=== PATIENT | female | born 1945 | race Caucasian/White ===

== ENCOUNTER 2017-01-02 15:39 | Emergency (ER) | payer MEDICARE, OTHER ==
--- NOTE | 2017-01-02 16:57 | ER Document Report ---
ED Fall - General Chief Complaint: Fall Stated Complaint: FALL HEAD INJURY/WEAKNESS Time Seen by Provider: 01/02/17 16:56 Mode of Arrival: Ambulatory Information source: Patient TRAVEL OUTSIDE OF THE [place] IN LAST 30 DAYS: No - HPI Patient complains to provider of: Head injury, left hip pain and fall Occurred: Yesterday Where: Home Context: Tripped Associated symptoms: None Location of injury/pain: Head, Hip Quality of pain: Achy Severity: Mild Pain Level: 2 Notes: Patient is a 71-year-old female who presents to the emergency room complaining of head pain and left hip pain that started after she tripped and fell at home yesterday, states she tripped on a carpet that was lying on the floor, the first time causing her to fall on the left hip, she got back up and fell again shortly thereafter hitting the back of her head on the floor, there was no loss of consciousness but she did feel dazed and had an episode of vomiting yesterday evening, states she did not want to come to the emergency room last night because she had to take a bath, denies any symptoms today except for mild tenderness in the left hip and to the back of head - Related data Allergies/Adverse Reactions: latex Allergy (Verified 01/02/17 16:14) nitrofurantoin [From Macrobid] Allergy (Verified 01/02/17 16:14) Sulfa (Sulfonamide Antibiotics) Allergy (Verified 01/02/17 16:14) Past Medical History - General Information source: Patient - Social History Smoking Status: Unknown if Ever Smoked Family History: Reviewed & Not Pertinent Patient has suicidal ideation: No Patient has homicidal ideation: No Renal/ Medical History: Denies: Hx Peritoneal Dialysis Review of Systems - Review of Systems Constitutional: No symptoms reported EENT: No symptoms reported Cardiovascular: No symptoms reported Respiratory: No symptoms reported Gastrointestinal: Nausea, Vomiting Genitourinary: No symptoms reported Female Genitourinary: No symptoms reported Musculoskeletal: See HPI Skin: No symptoms reported Hematologic/Lymphatic: No symptoms reported Neurological/Psychological: No symptoms reported -: Yes All other systems reviewed and negative Physical Exam - Vital signs Vitals: Temp Pulse Resp BP Pulse Ox 98.0 F 87 18 139/84 H 98 01/02/17 16:13 01/02/17 16:13 01/02/17 16:13 01/02/17 16:13 01/02/17 16:13 Interpretation: Normal - General General appearance: Appears well, Alert - HEENT Head: Normocephalic, Atraumatic, Tenderness - Tenderness to posterior scalp, no swelling, no bleeding, no erythema, no wound Eyes: Normal Pupils: PERRL - Respiratory Respiratory status: No respiratory distress Chest status: Nontender Breath sounds: Normal Chest palpation: Normal - Cardiovascular Rhythm: Regular Heart sounds: Normal auscultation Murmur: No - Abdominal Inspection: Normal Distension: No distension Bowel sounds: Normal Tenderness: Nontender Organomegaly: No organomegaly - Back Back: Normal, Nontender - Extremities General upper extremity: Normal inspection, Nontender, Normal color, Normal ROM , Normal temperature General lower extremity: Normal inspection, Tender - Tenderness to palpate over left posterior hip and distal sensation and motor is intact, 2+ DP pulses, full range of motion, Normal color, Normal ROM, Normal temperature. No: Aaron's sign - Neurological Neuro grossly intact: Yes Cognition: Normal Orientation: AAOx4 Dina Coma Scale Eye Opening: Spontaneous [place] Coma Scale Verbal: Oriented [place] Coma Scale Motor: Obeys Commands [place] Coma Scale Total: 15 Speech: Normal Motor strength normal: LUE, RUE, LLE, RLE Sensory: Normal - Psychological Associated symptoms: Normal affect, Normal mood - Skin Skin Temperature: Warm Skin Moisture: Dry Skin Color: Normal Course - Re-evaluation Re-evalutation: 01/02/17 18:01 Imaging findings unremarkable and discussed with patient, she will be discharged with instructions for follow-up and advised to return if any additional concerns, patient acknowledges understanding and agreement with this plan - Vital Signs Vital signs: Temp Pulse Resp BP Pulse Ox 98.1 F 74 16 151/57 H 99 01/02/17 18:05 01/02/17 18:05 01/02/17 18:05 01/02/17 18:05 01/02/17 18:05 - Diagnostic Test Radiology reviewed: Image reviewed, Reports reviewed Discharge - Discharge Clinical Impression: Head injury Qualifiers: Encounter type: initial encounter Qualified Code(s): S09.90XA - Unspecified injury of head, initial encounter Contusion, hip Qualifiers: Encounter type: initial encounter Laterality: left Qualified Code(s): S70.02XA - Contusion of left hip, initial encounter Condition: Stable Disposition: HOME, SELF-CARE Instructions: Head Injury Precautions ([facility]), Contusion ([facility]), Ice Packs ([facility]) Additional Instructions: Follow up with your primary care provider in one to 2 days. Return to the emergency room immediately if symptoms worsen or any additional concerns. Referrals: ANIKA ROBERSON MD [Primary Care Provider] - Follow up as needed
--- NOTE | 2017-01-02 17:24 | RADIOLOGY REPORT (SQ) ---
EXAM DESCRIPTION: CT HEAD WITHOUT COMPLETED DATE/TIME: 01/02/2017 5:14 pm REASON FOR STUDY: injury COMPARISON: None. TECHNIQUE: Axial images acquired through the brain without intravenous contrast. Images reviewed wi th bone, brain and subdural windows. Images stored on PACS. All CT scanners at this facility use dose modulation, iterative reconstruction, and/or weight based d osing when appropriate to reduce radiation dose to as low as reasonably achievable (ALARA). [facility]: Dose Right [facility]: CareDose [facility]: Dose Right [facility]: Teradose 4D [facility]: [employer] RADIATION DOSE: Up-to-date CT equipment and radiation dose reduction techniques were employed. CTDIv ol: 62.3 mGy. DLP: 1163 mGy-cm. mGy. LIMITATIONS: None. FINDINGS: VENTRICLES: Normal size and contour. CEREBRUM: No masses. No hemorrhage. No midline shift. Normal hernandez/white matter differentiation. N o evidence for acute infarction. CEREBELLUM: No masses. No hemorrhage. No alteration of density. No evidence for acute infarction. EXTRAAXIAL SPACES: No fluid collections. No masses. ORBITS AND GLOBE: No intra- or extraconal masses. Normal contour of globe without masses. CALVARIUM: No fracture. PARANASAL SINUSES: No fluid or mucosal thickening. SOFT TISSUES: No mass or hematoma. OTHER: No other significant finding. IMPRESSION: NORMAL BRAIN CT WITHOUT CONTRAST. TECHNICAL DOCUMENTATION: JOB ID: [id number] Quality ID # [id number]: Final reports with documentation of one or more dose reduction techniques (e.g., Au tomated exposure control, adjustment of the mA and/or kV according to patient size, use of iterative reconstruction technique) 2010 [employer]- All Rights Reserved
--- NOTE | 2017-01-02 17:39 | RADIOLOGY REPORT (SQ) ---
EXAM DESCRIPTION: HIP LEFT AP/LATERAL COMPLETED DATE/TIME: 01/02/2017 5:22 pm REASON FOR STUDY: fall COMPARISON: None. NUMBER OF VIEWS: Two views. TECHNIQUE: AP pelvis and additional frog-leg view of the left hip. LIMITATIONS: None. FINDINGS: MINERALIZATION: Normal. LEFT HIP: No fracture or dislocation. No worrisome bone lesions. RIGHT HIP: No fracture or dislocation. No worrisome bone lesions. PUBIS AND ISCHIUM: No fracture. PELVIS: No fracture. SACRUM: No fracture or dislocation. No worrisome bone lesions. LOWER LUMBAR SPINE: No fracture or dislocation. No worrisome bone lesions. No significant disc disea se. SOFT TISSUES: No findings. OTHER: No other significant finding. IMPRESSION: NEGATIVE STUDY OF THE LEFT HIP AND PELVIS. NO RADIOGRAPHIC EVIDENCE OF ACUTE INJURY. TECHNICAL DOCUMENTATION: JOB ID: [id number] [employer]- All Rights Reserved
[2017-01-02 18:11] VITALS: BP 151/57
== END 2017-01-02 18:06 | disposition home or self-care (01) ==
LOC: ER 15:39
DX: S70.02XA Contusion of left hip, initial encounter (principal); S09.90XA Unspecified injury of head, initial encounter; W01.0XXA Fall on same level from slipping, tripping and stumbling without subsequent striking against object, initial encounter; Y93.E9 Activity, other interior property and clothing maintenance; Y92.009 Unspecified place in unspecified non-institutional (private) residence as the place of occurrence of the external cause; M25.552 Pain in left hip; R51 Headache; Z88.2 Allergy status to sulfonamides; Z91.040 Latex allergy status; Z88.1 Allergy status to other antibiotic agents; R11.2 Nausea with vomiting, unspecified
CPT/HCPCS: 70450; 99284

== ENCOUNTER → 2017-03-20 | Outpatient (CLI) | payer MEDICARE ==
[2017-03-20 13:37] LABS: HEMATOCRIT 31.4 % (36.0-47.0); HGB HCT DIFFERENCE -1.4; MEAN CORPUSCULAR HEMOGLOBIN 27.5 pg (27.0-33.4); MEAN CORPUSCULAR HGB CONC 31.9 g/dL (32.0-36.0); MEAN CORPUSCULAR VOLUME 86 fl (80-97); RED BLOOD COUNT 3.64 10^6/uL (3.72-5.28); RED CELL DISTRIBUTION WIDTH 14.1 % (11.5-14.0); WHITE BLOOD COUNT 5.4 10^3/uL (4.0-10.5)
[2017-03-20 14:12] LABS: ERYTHROCYTE SEDIMENTATION RATE 76 mm/hr (0-30)
== END ==
LOC: OD 12:32
PROVIDERS: ATTEND Internal Medicine Rheumatology
DX: D64.9 Anemia, unspecified (principal); R70.0 Elevated erythrocyte sedimentation rate; R79.82 Elevated C-reactive protein (CRP)
CPT/HCPCS: 36415; 85027; 85652; 86140

== ENCOUNTER 2017-04-08 17:52 | Emergency (ER) | payer MEDICARE ==
[2017-04-08 17:57] VITALS: BP 169/67
--- NOTE | 2017-04-08 18:37 | ER Document Report ---
ED Fall - General Chief Complaint: Fall Stated Complaint: FALL/FACE INJURY Time Seen by Provider: 04/08/17 18:24 Mode of Arrival: Ambulatory Information source: Patient Notes: 72-year-old female presents to ED for fall landing on her face. She has a history of high blood pressure bladder cancer arthritis reflux. She also has nodules on her thyroid. States she is on aspirin 81 mg every other day. She denies any blood thinners. She does have some saray-orbital ecchymosis and swelling on the left. She states she was walking to the car stepped in a hole fell face first on the ground. TRAVEL OUTSIDE OF THE [place] IN LAST 30 DAYS: No - HPI Occurred: Just prior to arrival Where: Home, Outdoors Context: Tripped Associated symptoms: None Location of injury/pain: Ankle - Left ankle abrasion, Face, Head, Knee - Knee abrasion to the left, Wrist - Tender Quality of pain: Achy Severity: Moderate Pain Level: 2 - Related data Allergies/Adverse Reactions: latex Allergy (Verified 01/02/17 16:14) nitrofurantoin [From Macrobid] Allergy (Verified 01/02/17 16:14) Sulfa (Sulfonamide Antibiotics) Allergy (Verified 01/02/17 16:14) Past Medical History - General Information source: Patient - Social History Smoking Status: Never Smoker Cigarette use (# per day): No Chew tobacco use (# tins/day): No Smoking Education Provided: No Frequency of alcohol use: None Drug Abuse: None Lives with: Family Family History: Arthritis, CAD, CVA, DM, Hyperlipidemia, Hypertension, Malignancy. denies: COPD, Thyroid Disfunction Patient has suicidal ideation: No Patient has homicidal ideation: No - Past Medical History Cardiac Medical History: Reports: Hx Hypertension Pulmonary Medical History: Reports: None EENT Medical History: Reports: None Neurological Medical History: Reports: None Endocrine Medical History: Reports: Other - Thyroid nodules Renal/ Medical History: Denies: Hx Peritoneal Dialysis Malignancy Medical History: Reports: Other - Bladder cancer GI Medical History: Reports: Hx Gastroesophageal Reflux Disease, Hx Colonoscopy , Hx Endoscopy Musculoskeltal Medical History: Reports Hx Arthritis, Reports Other - Sjogren's Skin Medical History: Reports None Psychiatric Medical History: Reports: None Traumatic Medical History: Reports: None Infectious Medical History: Reports: None Past Surgical History: Reports: Hx Adenoidectomy, Hx Genitourinary Surgery - Bladder removed and now has ileostomy, Hx Hysterectomy, Hx Tonsillectomy Review of Systems - Review of Systems Constitutional: No symptoms reported EENT: No symptoms reported Cardiovascular: No symptoms reported Respiratory: No symptoms reported Gastrointestinal: No symptoms reported Genitourinary: No symptoms reported Female Genitourinary: No symptoms reported Musculoskeletal: No symptoms reported Skin: Other - Abrasions to left wrist the and ankle periorbital ecchymosis with swelling to the left Hematologic/Lymphatic: No symptoms reported Neurological/Psychological: Headaches. denies: Lost consciousness -: Yes All other systems reviewed and negative Physical Exam - Vital signs Vitals: Temp Pulse Resp BP Pulse Ox 98.4 F 84 16 169/67 H 98 04/08/17 17:54 04/08/17 17:54 04/08/17 17:54 04/08/17 17:54 04/08/17 17:54 Interpretation: Normal - General General appearance: Appears well, Alert - HEENT Head: Ecchymosis - Periorbital ecchymosis on the left, swelling to the face Eyes: Normal Pupils: PERRL Ears: Normal External canal: Normal Tympanic membrane: Normal Sinus: Normal Nasal: Normal Mouth/Lips: Normal Mucous membranes: Normal Pharynx: Normal - Respiratory Respiratory status: No respiratory distress Chest status: Nontender Breath sounds: Normal Chest palpation: Normal - Cardiovascular Rhythm: Regular Heart sounds: Normal auscultation Murmur: No - Abdominal Inspection: Normal Distension: No distension Bowel sounds: Normal Tenderness: Nontender Organomegaly: No organomegaly - Back Back: Normal, Nontender - Extremities General upper extremity: Normal color, Normal ROM, Normal temperature General lower extremity: Normal color, Normal ROM, Normal temperature, Normal weight bearing. No: Aaron's sign Wrist: Tender, Abrasion Knee: Tender, Abrasion, Ecchymosis Ankle: Tender, Abrasion - Neurological Neuro grossly intact: Yes Cognition: Normal Orientation: AAOx4 Dina Coma Scale Eye Opening: Spontaneous [place]yman Coma Scale Verbal: Oriented Lyman Coma Scale Motor: Obeys Commands Lyman Coma Scale Total: 15 Speech: Normal Motor strength normal: LUE, RUE, LLE, RLE Sensory: Normal - Psychological Associated symptoms: Normal affect, Normal mood - Skin Skin Temperature: Warm Skin Moisture: Dry Skin Color: Normal Course - Re-evaluation Re-evalutation: 04/08/17 20:[address] with patient and family, written reports given to patient. Patient was instructed to follow-up with her primary doctor. Patient was given Tylenol for her pain. She was also treated with 6 Shur-Clens water bacitracin to her abrasions. CT showed no acute fractures. She does have periorbital ecchymosis to the left eye. - Vital Signs Vital signs: Temp Pulse Resp BP Pulse Ox 98.4 F 84 16 169/67 H 98 04/08/17 17:54 04/08/17 17:54 04/08/17 17:54 04/08/17 17:54 04/08/17 17:54 - Diagnostic Test Radiology reviewed: Image reviewed, Reports reviewed Discharge - Discharge Clinical Impression: Abrasion, left knee, initial encounter, Contusion of left wrist, initial encounter Periorbital ecchymosis of left eye Qualifiers: Encounter type: initial encounter Qualified Code(s): S00.12XA - Contusion of left eyelid and periocular area, initial encounter Fall Qualifiers: Encounter type: initial encounter Qualified Code(s): W19.XXXA - Unspecified fall, initial encounter Head injury Qualifiers: Encounter type: initial encounter Qualified Code(s): S09.90XA - Unspecified injury of head, initial encounter Abrasion of left ankle Qualifiers: Encounter type: initial encounter Qualified Code(s): S90.512A - Abrasion, left ankle, initial encounter Condition: Stable Disposition: HOME, SELF-CARE Instructions: Family Physicians / Practices Additional Instructions: HEAD INJURY PRECAUTIONS: At this point, there is no evidence that your head injury is serious. Observation is necessary, however. Take only clear liquids for the first few hours, unless told otherwise by the doctor. If no pain medication was prescribed, you may take acetaminophen according to the directions on the bottle. Do not take any medication that may alter your level of alertness (unless you've discussed it with the doctor first) . Limit activity for the first 24 hours. Bed rest is best. During the first 24 hours, check to see approximately every two to three hours that the patient is easily arousable, responds normally, and can perform common tasks such as walking without difficulty. Contact your doctor or go to the hospital if any of the following things occur: Persistent vomiting, difficulty in arousing the patient, worsening or continued headache, or failure to improve as expected. Head injuries can cause symptoms that persist for a few days or even a few weeks. CONTUSION: Your injury has resulted in a contusion -- a crushing of the deep tissues. No injury to important structures was detected during the physician's exam. Contusions vary in the amount of pain they cause, and in the length of time required for healing. Typically, the area will become bruised, and will remain painful to touch for two or three weeks. However, most patients are back to working and playing within a few days. After the initial period of rest and cold-packs, your symptoms (together with the doctor's recommendations) will determine how rapidly you can get back to full activity. Usually this means "do what feels okay, but don't do things that hurt." If re-examination was recommended, it's important to follow up as instructed. Call the doctor or return any time if pain increases, if swelling becomes severe, if you develop numbness or weakness in an injured extremity, or if any other alarming symptoms occur. ABRASIONS: An abrasion is a scraping injury of the skin. Some scarring may result. The seriousness of an abrasion is not always obvious at first. Hidden tissue damage may be present and infection may occur despite proper care. Complete healing may take from ten days to as long as a month. The healing time depends on the depth of the abrasion, and on the amount of crushing of underlying tissues from the injury. Keep the wound and dressing clean. Do not shower or bathe the area until okayed by the doctor. If the dressing gets wet, remove it and blot the wound dry, then reapply a clean dressing. Dressings should be changed every day. Sunscreen should be used for six months after the skin is healed. If any signs of infection occur (swelling, redness, increasing tenderness, red streaks, profuse purulent drainage from the abrasion, tender lumps in the armpit or groin above the abrasion, or fever), see the doctor immediately. SOAP CLEANSING: Gently wash the wound daily using a mild soap (like Ivory, Phisoderm, Neutrogena). Use warm water, rubbing gently until all debris, ooze, and crusting have been washed from the wound. Allow to dry briefly (about 10 minutes) after cleaning. Repeat this cleansing at least three times a day for the first two days and then once or twice a day. ANTIBIOTIC OINTMENT PROTECTION: Your wounds are such that dressing them is not practical or optional. After cleansing, you should apply a thin coating of antibiotic ointment ( Bacitracin, not Neosporin) to the wounds at least three times daily. This lessens infection risk, and may decrease the amount of scarring. Use a q-tip or dull butter knife, not your finger, to apply this ointment. Any debris or ooze which builds up in the ointment should be gently rubbed off with a sterile gauze pad. Harder crusting may need to be gently scrubbed off with a clean wash cloth with soap and warm water, perhaps applying a warm, wet wash cloth to the wound for ten minutes first. Development of redness, severe itching, or blistering may mean allergy to the ointment. See the doctor. USE OF TYLENOL (ACETAMINOPHEN): Acetaminophen may be taken for pain relief or fever control. It's much safer than aspirin, offering a wider range of "safe" dosages. It is safe during . Some brand names are Tylenol, Panadol, Datril, Anacin 3, Tempra, and Liquiprin. Acetaminophen can be repeated every four hours. The following are maximum recommended dosages: WEIGHT Dose Drops Elixir Chewable( 80mg) (LBS.) drprs=droppers tsp=teaspoon 6 40 mg 0.4 ml (1/2) 6-11 80 mg 0.8 ml (full) tsp 1 tab 12-16 120 mg 1 1/2 drprs 3/4 tsp 1 1/2 tabs 17-23 160 mg 2 drprs 1 tsp 2 tabs 24-30 240 mg 3 drprs 1 1/2 tsp 3 tabs 30-35 320 mg 2 tsp 4 tabs 36-41 360 mg 2 1/4 tsp 4 1/2 tabs 42-47 400 mg 2 1/2 tsp 5 tabs 48-53 480 mg 3 tsp 6 tabs 54-59 520 mg 3 1/4 tsp 6 1/2 tabs 60-64 560 mg 3 1/2 tsp 7 tabs 65-70 600 mg 3 3/4 tsp 7 1/2 tabs 71-76 640 mg 4 tsp 8 tabs 77-82 720 mg 4 1/2 tsp 9 tabs 83-88 800 mg 5 tsp 10 tabs >89 pounds or adults 650 mg to 900 mg Acetaminophen can be repeated every four hours. Maximum dose not to exceed 4000 mg a day. These maximum recommended dosages are slightly higher than the dosages written on the product container, but these dosages are very safe and below the toxic dosage for acetaminophen. ICE PACKS: Apply ice packs frequently against the painful area. Many different schedules are recommended, such as "20 minutes on, 20 minutes off" or "one hour ice, two hours rest." If you need to work, you may need to go longer between ice treatments. You should plan to have the area ice packed AT LEAST one fourth of the time. The ice should be applied over the wrap, tape, or splint, or over a layer of cloth -- not directly against the skin. Some ice bags have a built-in cloth and can be put directly on the skin. WARM PACKS: After approximately two days, apply gentle heat (such as a heating pad or hot water bottle) for about 20 to 30 minutes about every two hours -- at least four times daily. Warmth and elevation will help you make a more rapid recovery , and will ease the pain considerably. Do not use HOT heat, and never apply heat for longer than 30 minutes. The continuous heat can invisibly damage skin and muscles -- even when no burn is seen on the surface. Damaged muscles can make you MORE sore. FOLLOW-UP CARE: If you have been referred to a physician for follow-up care, call the physician s office for an appointment as you were instructed or within the next two days. If you experience worsening or a significant change in your symptoms, notify the physician immediately or return to the Emergency Department at any time for re-evaluation. Forms: Elevated Blood Pressure
[2017-04-08] MEDS ORDERED: ACETAMINOPHEN 325 MG TABLET PO ONE (19:33)
--- NOTE | 2017-04-08 19:43 | RADIOLOGY REPORT (SQ) ---
EXAM DESCRIPTION: CT CERVICAL SPINE WITHOUT COMPLETED DATE/TIME: 04/08/2017 7:19 pm REASON FOR STUDY: fall landed on face COMPARISON: None. TECHNIQUE: Axial images acquired through the cervical spine without intravenous contrast. Images re viewed with lung, soft tissue and bone windows. Reconstructed coronal and sagittal MPR images review ed. Images stored on PACS. All CT scanners at this facility use dose modulation, iterative reconstruction, and/or weight based d osing when appropriate to reduce radiation dose to as low as reasonably achievable (ALARA). [facility]: Dose Right [facility]: CareDose [facility]: Dose Right [facility]: Teradose 4D [facility]: [employer] RADIATION DOSE: Up-to-date CT equipment and radiation dose reduction techniques were employed. CTDIv ol: 16.0 mGy. DLP: 354 mGy-cm. mGy. LIMITATIONS: None. FINDINGS: ALIGNMENT: Anatomic. MINERALIZATION: Normal. VERTEBRAL BODIES: No fractures or dislocation. DISCS: Multilevel disc space narrowing with osteophytes. FACETS, LATERAL MASSES, POSTERIOR ELEMENTS: Facet arthropathy. No fractures. No dislocation. No ac dusty findings. HARDWARE: None in the spine. VISUALIZED RIBS: No fractures. LUNG APICES AND SOFT TISSUES: Incidental note is made of an enlarged, heterogeneous left lobe of the thyroid. OTHER: No other significant finding. IMPRESSION: No evidence of acute osseous injury. Background of chronic cervical spondylotic change. Incidental note is made of an enlarged, heterogeneous left thyroid lobe. TECHNICAL DOCUMENTATION: JOB ID: [id number] Quality ID # [id number]: Final reports with documentation of one or more dose reduction techniques (e.g., Au tomated exposure control, adjustment of the mA and/or kV according to patient size, use of iterative reconstruction technique) 2010 [employer]- All Rights Reserved
--- NOTE | 2017-04-08 19:45 | RADIOLOGY REPORT (SQ) ---
EXAM DESCRIPTION: CT FACIAL AREA WITHOUT COMPLETED DATE/TIME: 04/08/2017 7:19 pm REASON FOR STUDY: fall landed on face COMPARISON: None. TECHNIQUE: Noncontrasted images through the facial bones and orbits windowed for bone and soft tissu e. Additional coronal and sagittal reconstructed images reviewed. All images stored on PACS. All CT scanners at this facility use dose modulation, iterative reconstruction, and/or weight based d osing when appropriate to reduce radiation dose to as low as reasonably achievable (ALARA). [facility]: Dose Right [facility]: CareDose [facility]: Dose Right [facility]: Teradose 4D [facility]: [employer] RADIATION DOSE: Up-to-date CT equipment and radiation dose reduction techniques were employed. CTDIv ol: 30.4 mGy. DLP: 555 mGy-cm. mGy. LIMITATIONS: None. FINDINGS: FACIAL BONES: No fracture or bone lesion. ORBITS: Intact. No fracture. Symmetric intact globes and retroorbital soft tissues. PARANASAL SINUSES: Clear. No significant mucosal thickening, mass or fluid. No nasal polyps. Maxill grupo sinus outlets are patent. SOFT TISSUES: Note is made of mild left pre maxillary soft tissue edema. INFERIOR BRAIN: Limited view. No acute findings. OTHER: No other significant finding. IMPRESSION: Left pre maxillary soft tissue edema without underlying osseous injury. TECHNICAL DOCUMENTATION: JOB ID: [id number] Quality ID # [id number]: Final reports with documentation of one or more dose reduction techniques (e.g., Au tomated exposure control, adjustment of the mA and/or kV according to patient size, use of iterative reconstruction technique) 2010 [employer]- All Rights Reserved
--- NOTE | 2017-04-08 19:46 | RADIOLOGY REPORT (SQ) ---
EXAM DESCRIPTION: CT HEAD WITHOUT COMPLETED DATE/TIME: 04/08/2017 7:19 pm REASON FOR STUDY: fall landed on face COMPARISON: None. TECHNIQUE: Axial images acquired through the brain without intravenous contrast. Images reviewed wi th bone, brain and subdural windows. Images stored on PACS. All CT scanners at this facility use dose modulation, iterative reconstruction, and/or weight based d osing when appropriate to reduce radiation dose to as low as reasonably achievable (ALARA). [facility]: Dose Right [facility]: CareDose [facility]: Dose Right [facility]: Teradose 4D [facility]: Smart [employer] RADIATION DOSE: Up-to-date CT equipment and radiation dose reduction techniques were employed. CTDIv ol: 64.6 mGy. DLP: 1163 mGy-cm. mGy. LIMITATIONS: None. FINDINGS: VENTRICLES: Normal size and contour. CEREBRUM: No masses. No hemorrhage. No midline shift. No evidence for acute infarction. Normal gra y/white matter differentiation. No areas of low density in the white matter. CEREBELLUM: No masses. No hemorrhage. No alteration of density. No evidence for acute infarction. EXTRAAXIAL SPACES: No fluid collections. No masses. ORBITS AND GLOBE: No intra- or extraconal masses. Normal contour of globe without masses. CALVARIUM: No fracture. PARANASAL SINUSES: No fluid or mucosal thickening. SOFT TISSUES: No mass or hematoma. OTHER: No other significant finding. IMPRESSION: NORMAL BRAIN CT WITHOUT CONTRAST. EVIDENCE OF ACUTE STROKE: NO. COMMENT: Quality ID # [id number]: Final reports with documentation of one or more dose reduction techniques (e.g., Automated exposure control, adjustment of the mA and/or kV according to patient size, use of iterative reconstruction technique) TECHNICAL DOCUMENTATION: JOB ID: [id number]- All Rights Reserved
== END 2017-04-08 20:39 | disposition home or self-care (01) ==
LOC: ER 17:52
DX: S60.212A Contusion of left wrist, initial encounter (principal); S80.212A Abrasion, left knee, initial encounter; S90.512A Abrasion, left ankle, initial encounter; S00.12XA Contusion of left eyelid and periocular area, initial encounter; R03.0 Elevated blood-pressure reading, without diagnosis of hypertension; E04.1 Nontoxic single thyroid nodule; W19.XXXA Unspecified fall, initial encounter
CPT/HCPCS: 99283; 70450; 70486; 72125; A9270

== ENCOUNTER → 2018-10-17 | Outpatient (CLI) | payer MEDICARE | LOC: OD 13:53 | PROVIDERS: ATTEND Physician Assistant | DX: N39.0 Urinary tract infection, site not specified (principal); R31.9 Hematuria, unspecified | CPT/HCPCS: 87086; 87088; 87186 ==

== ENCOUNTER → 2019-01-02 | Outpatient (CLI) | payer MEDICARE ==
--- NOTE | 2019-01-02 14:05 | RADIOLOGY REPORT (SQ) ---
EXAM DESCRIPTION: CT ABD/PELVIS WITH IV ORAL COMPLETED DATE/TIME: 01/02/2019 1:16 pm REASON FOR STUDY: DIVERTICULITIS (K57.92) K57.92 DVTRCLI OF INTEST, PART UNSP, W/O PERF OR ABSCESS W/O COMPARISON: None. TECHNIQUE: CT scan of the abdomen and pelvis performed using helical scanning technique with dynamic intravenous contrast injection. Oral contrast. Images reviewed with lung, soft tissue, and bone win dows. Reconstructed coronal and sagittal MPR images reviewed. Delayed images for evaluation of the ur inary system also acquired. All images stored on PACS. All CT scanners at this facility use dose modulation, iterative reconstruction, and/or weight based d osing when appropriate to reduce radiation dose to as low as reasonably achievable (ALARA). [facility]: Dose Right [facility]: CareDose [facility]: Dose Right [facility]: Teradose 4D [facility]: [employer] CONTRAST TYPE AND DOSE: contrast/concentration: Isovue 350.00 mg/ml; Total Contrast Delivered: 85.0 ml; Total Saline Delivered: 69.0 ml RENAL FUNCTION: Creatinine 1.2 RADIATION DOSE: CT Rad equipment meets quality standard of care and radiation dose reduction techniq ues were employed. CTDIvol: 9.0 - 10.2 mGy. DLP: 941 mGy-cm.. LIMITATIONS: None. FINDINGS: LOWER CHEST: No significant findings. No nodules or infiltrates. LIVER: Normal size. No masses. SPLEEN: Normal size. No focal lesions. PANCREAS: No masses. No significant calcifications. No adjacent inflammation or peripancreatic fluid collections. Pancreatic duct not dilated. GALLBLADDER: No identified stones by CT criteria. No inflammatory changes to suggest cholecystitis. ADRENAL GLANDS: No significant masses or asymmetry. RIGHT KIDNEY AND URETER: No solid masses. No significant calcifications. No hydronephrosis or hyd roureter. LEFT KIDNEY AND URETER: No solid masses. No significant calcifications. Hydronephrosis. AORTA AND VESSELS: No aneurysm. No dissection. Renal arteries, SMA, celiac without stenosis. RETROPERITONEUM: No retroperitoneal adenopathy, hemorrhage or masses. BOWEL AND PERITONEAL CAVITY: Sigmoid diverticulosis. No significant stranding. No obvious bowel mas s. APPENDIX: Not identified. 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 The patient has had a urinary diversion procedure. T here is an ostomy in the right lower quadrant. No pelvic mass. ABDOMINAL WALL: Right lower quadrant ostomy containing unobstructed bowel. BONES: No significant or acute findings. OTHER: No other significant finding. IMPRESSION: Diverticulosis coli. Prior urinary diversion procedure. Left hydronephrosis related to the procedure. No acute finding in the abdomen or pelvis. TECHNICAL DOCUMENTATION: JOB ID: [id number] Quality ID # [id number]: Final reports with documentation of one or more dose reduction techniques (e.g., Au tomated exposure control, adjustment of the mA and/or kV according to patient size, use of iterative reconstruction technique) 2010 [employer]- All Rights Reserved Reading location - IP/workstation name: [email or web address]
== END ==
LOC: RAD 12:31
PROVIDERS: ATTEND Surgery
DX: K57.92 Diverticulitis of intestine, part unspecified, without perforation or abscess without bleeding (principal)
CPT/HCPCS: 74177; 82565

== ENCOUNTER 2019-03-01 10:24 | Emergency (ER) | payer MEDICARE ==
[2019-03-01] MEDS ORDERED: NORMAL SALINE 1000 ML 1,000 ML IV ONE (10:46)
--- NOTE | 2019-03-01 10:48 | ER Document Report ---
ED Medical Screen (RME) - General Chief Complaint: Lower Abdominal Pain Stated Complaint: BLOOD IN STOMA/ABDOMINAL Time Seen by Provider: 03/01/19 10:44 Primary Care Provider: TEODORO ORTIZ MD [Primary Care Provider] - Follow up as needed Mode of Arrival: Ambulatory Information source: Patient Notes: 74-year-old female presented to ED for complaint of blood in her urostomy stoma this morning when she woke up. She states it is full of thick blood. She states for the last 3 weeks she has been very sick nausea vomiting and diarrhea. She states she went to her primary care yesterday and they told her to come back in 2 weeks if she was not better. She states she woke up this morning and the urostomy was full of bloody urine. She has had bladder cancer and that is why her bladder was removed. She is on high blood pressure medicine. She states she has a lot of pain around the stoma and has not felt right since she had a hernia surgery repaired in [place] around January 21. I have greeted and performed a rapid initial assessment of this patient. A comprehensive ED assessment and evaluation of the patient, analysis of test results and completion of medical decision making process will be conducted by an additional ED providers. TRAVEL OUTSIDE OF THE [place] IN LAST 30 DAYS: No - Related Data Allergies/Adverse Reactions: latex Allergy (Verified 03/01/19 10:26) nitrofurantoin [From Macrobid] Allergy (Verified 03/01/19 10:26) Sulfa (Sulfonamide Antibiotics) Allergy (Verified 03/01/19 10:26) Past Medical History - Past Medical History Cardiac Medical History: Reports: Hx Hypertension Renal/ Medical History: Denies: Hx Peritoneal Dialysis GI Medical History: Reports: Hx Gastroesophageal Reflux Disease, Hx Colonoscopy, Hx Endoscopy Musculoskeltal Medical History: Reports Hx Arthritis Past Surgical History: Reports: Hx Adenoidectomy, Hx Genitourinary Surgery - Bladder removed and now has ileostomy, Hx Hysterectomy, Hx Tonsillectomy Physical Exam - Vital signs Vitals: Temp Pulse Resp BP Pulse Ox 99.1 F 92 16 147/63 H 96 03/01/19 10:28 03/01/19 10:28 03/01/19 10:28 03/01/19 10:28 03/01/19 10:28 Course - Vital Signs Vital signs: Temp Pulse Resp BP Pulse Ox 99.1 F 92 16 147/63 H 96 03/01/19 10:28 03/01/19 10:28 03/01/19 10:28 03/01/19 10:28 03/01/19 10:28 Doctor's Discharge - Discharge Referrals: TEODORO ORTIZ MD [Primary Care Provider] - Follow up as needed
[2019-03-01 11:08] LABS: ABSOLUTE EOSINOPHILS # (AUTO) 0.1 10^3/uL (0.0-0.6); ABSOLUTE LYMPHOCYTES (AUTO) 0.8 10^3/uL (0.5-4.7); ABSOLUTE MONOCYTES (AUTO) 0.9 10^3/uL (0.1-1.4); ABSOLUTE NEUT (AUTO) 10.8 10^3/uL (1.7-8.2); BASOPHILS % (AUTO) 0.3 % (0-2); EOSINOPHILS % (AUTO) 0.5 % (0-6); HEMATOCRIT 27.9 % (36.0-47.0); HEMOGLOBIN 9.2 g/dL (12.0-15.5); LYMPHOCYTES % (AUTO) 6.7 % (13-45); MEAN CORPUSCULAR HEMOGLOBIN 28.2 pg (27.0-33.4); MEAN CORPUSCULAR VOLUME 86 fl (80-97); MONOCYTES % (AUTO) 6.8 % (3-13); PLATELET COUNT 315 10^3/uL (150-450); RED BLOOD COUNT 3.26 10^6/uL (3.72-5.28); RED CELL DISTRIBUTION WIDTH 13.3 % (11.5-14.0); SEGMENTED NEUTROPHILS % (AUTO) 85.7 % (42-78); TOTAL CELLS COUNTED % (AUTO) 100 %; WHITE BLOOD COUNT 12.6 10^3/uL (4.0-10.5)
[2019-03-01 11:24] LABS: ALBUMIN 3.3 g/dL (3.5-5.0); ALKALINE PHOSPHATASE 93 U/L (38-126); ANION GAP 10 (5-19); ASPARTATE AMINO TRANSFERASE 26 U/L (14-36); BILIRUBIN,DIRECT 0.3 mg/dL (0.0-0.4); BILIRUBIN,TOTAL 0.5 mg/dL (0.2-1.3); BLOOD UREA NITROGEN 18 mg/dL (7-20); CALCIUM 8.3 mg/dL (8.4-10.2); CARBON DIOXIDE 29 mmol/L (22-30); CHLORIDE 101 mmol/L (98-107); GLUCOSE 117 mg/dL (75-110); POTASSIUM 4.1 mmol/L (3.6-5.0); TOTAL PROTEIN 6.3 g/dL (6.3-8.2)
--- NOTE | 2019-03-01 12:23 | RADIOLOGY REPORT (SQ) ---
EXAM DESCRIPTION: U/S RETROPERITON (RENAL/AORTA) COMPLETED DATE/TIME: 03/01/2019 12:13 pm REASON FOR STUDY: hematuria in urostomy stoma COMPARISON: CT abdomen pelvis dated 01/02/2019 TECHNIQUE: Dynamic and static grayscale images acquired of the kidneys and bladder and recorded on P ACS. Additional selected color Doppler and spectral images recorded. LIMITATIONS: None. FINDINGS: RIGHT KIDNEY: The right kidney measures 10.1 cm in length. Normal echogenicity. No so lid or suspicious masses. No hydronephrosis. No calcifications. LEFT KIDNEY: Normal size. Normal echogenicity. No solid or suspicious masses. There is stable left-sided hydronephrosis when compared to prior CT. No calcifications. BLADDER: Prior cystectomy. OTHER FINDINGS: No other significant finding. IMPRESSION: Left-sided hydronephrosis not significantly changed when compared to prior CT. TECHNICAL DOCUMENTATION: JOB ID: [id number] [employer]- All Rights Reserved Reading location - IP/workstation name: [email or web address]
--- NOTE | 2019-03-01 12:28 | ER Document Report ---
ED General - General Chief Complaint: Lower Abdominal Pain Stated Complaint: BLOOD IN STOMA/ABDOMINAL Time Seen by Provider: 03/01/19 10:44 Primary Care Provider: TEODORO ORTIZ MD [NO LOCAL MD] - Follow up as needed Mode of Arrival: Ambulatory Information source: Patient Notes: HPI: 74-year-old female who presents today with what she states is around 2 weeks of intermittent right lower quadrant abdominal pain with intermittent nonbloody vomiting. Patient does states she has diarrhea around once every 2 days but she states this is a chronic issue. No increased diarrhea. Patient does have a history in 2017 and bladder removal with ostomy placement secondary to bladder cancer. She also had a hernia repaired in [place] on January 21 to the lower abdominal region. When asked why she waited so long to come get evaluated she states that she is stubborn. Patient states she has had some low intermittent fevers but denies any documentation of this. She denies any headache, sore throat, cough, chest pain, or shortness of breath. Does state the ostomy output has been intermittently bloody in color. She denies any flank pain. ROS: See HPI All other review of systems reviewed and otherwise negative Reviewed vital signs and nursing note as charted by RN. PHYSICAL EXAM: CONSTITUTIONAL: Alert and oriented and responds appropriately to questions. Well-appearing; well-nourished HEAD: Normocephalic; atraumatic EYES: Sclerae is not pale ENT: Normal nose; no rhinorrhea; moist mucous membranes; pharynx without lesions noted NECK: Supple without meningismus; non-tender; no cervical lymphadenopathy, no masses CARD: Regular rate and rhythm; no murmurs; symmetric distal pulses RESP: Normal chest excursion without splinting or tachypnea; breath sounds clear and equal bilaterally; no wheezes, no rhonchi, no rales ABD/GI: Normal bowel sounds; non-distended; soft, mildly tender to palpation of the periumbilical region without rebound or guarding; ostomy placed with some whitish discharge in the ostomy bag; no palpable organomegaly or masses BACK: The back appears normal and is non-tender to palpation EXT: Normal ROM in all joints; non-tender to palpation; no edema SKIN: No acute lesions noted NEURO: CN 2-12 intact; 5/5 bilateral upper and lower extremity strength with sensation intact to light touch PSYCH: The patient's mood and manner are appropriate. Grooming and personal hygiene are appropriate. TRAVEL OUTSIDE OF THE [place] IN LAST 30 DAYS: No - Related Data Allergies/Adverse Reactions: latex Allergy (Verified 03/01/19 10:26) nitrofurantoin [From Macrobid] Allergy (Verified 03/01/19 10:26) Sulfa (Sulfonamide Antibiotics) Allergy (Verified 03/01/19 10:26) Past Medical History - General Information source: Patient - Social History Smoking Status: Never Smoker Chew tobacco use (# tins/day): No Frequency of alcohol use: None Drug Abuse: None Family History: Arthritis, CAD, CVA, DM, Hyperlipidemia, Hypertension, Malignancy. denies: COPD, Thyroid Disfunction Patient has suicidal ideation: No Patient has homicidal ideation: No - Past Medical History Cardiac Medical History: Reports: Hx Hypertension Renal/ Medical History: Denies: Hx Peritoneal Dialysis GI Medical History: Reports: Hx Gastroesophageal Reflux Disease, Hx Colonoscopy, Hx Endoscopy Musculoskeletal Medical History: Reports Hx Arthritis Past Surgical History: Reports: Hx Adenoidectomy, Hx Genitourinary Surgery - Bladder removed and now has ileostomy, Hx Hysterectomy, Hx Tonsillectomy Physical Exam - Vital signs Vitals: Temp Pulse Resp BP Pulse Ox 99.1 F 92 16 147/63 H 96 03/01/19 10:28 03/01/19 10:28 03/01/19 10:28 03/01/19 10:28 03/01/19 10:28 Course - Re-evaluation Re-evalutation: 03/01/19 12:28 Given the above history and physical we will order hemoglobin level, basic chemistry, CT scan of the abdomen and pelvis, and reassess. I would like to evaluate for the possibility of an ostomy leak, intra-abdominal process, abdominal obstruction, or other acute abdominal or ureteral abnormality. 03/01/19 13:32 Labs and imaging as recorded. I have called and spoken directly to the urologist on-call who states that she would like us to call Dr. Maxwell's group. I have provided Zosyn. The surgeon, Dr. Molly Juarez will be returning the call. 03/01/19 16:12 I was able to speak directly to the surgeon Dr. Ortiz who agrees with transfer and with providing every 6 hours Zosyn. - Vital Signs Vital signs: Temp Pulse Resp BP Pulse Ox 99.1 F 92 16 147/63 H 96 03/01/19 10:28 03/01/19 10:28 03/01/19 10:28 03/01/19 10:28 03/01/19 10:28 - Laboratory Result Diagrams: 03/01/19 10:57 03/01/19 10:57 Laboratory results interpreted by me: 03/01/19 03/01/19 03/01/19 10:57 10:57 13:20 WBC 12.6 H RBC 3.26 L Hgb 9.2 L Hct 27.9 L Lymph % (Auto) 6.7 L Absolute Neuts (auto) 10.8 H Seg Neutrophils % 85.7 H Est GFR (MDRD) Non-Af 54 L Glucose 117 H Calcium 8.3 L Albumin 3.3 L Urine Protein 100 H Urine Ketones TRACE H Urine Blood LARGE H Ur Leukocyte Esterase SMALL H Discharge - Discharge Clinical Impression: Abdominal mass, LLQ (left lower quadrant), Pancreatic mass Condition: Fair Disposition: [place] Referrals: TEODORO ORTIZ MD [NO LOCAL MD] - Follow up as needed
--- NOTE | 2019-03-01 13:53 | RADIOLOGY REPORT (SQ) ---
EXAM DESCRIPTION: CT ABD/PELVIS WITH IV ONLY COMPLETED DATE/TIME: 03/01/2019 1:33 pm REASON FOR STUDY: 13; RLQ pain; h/o hernia repair/bladder removal COMPARISON: 01/02/2019 TECHNIQUE: CT scan of the abdomen and pelvis performed using helical scanning technique with dynamic intravenous contrast injection. No oral contrast. Images reviewed with lung, soft tissue, and bone windows. Reconstructed coronal and sagittal MPR images reviewed. Delayed images for evaluation of the urinary system also acquired. All images stored on PACS. All CT scanners at this facility use dose modulation, iterative reconstruction, and/or weight based d osing when appropriate to reduce radiation dose to as low as reasonably achievable (ALARA). [facility]: Dose Right [facility]: CareDose [facility]: Dose Right [facility]: Teradose 4D [facility]: [employer] CONTRAST TYPE AND DOSE: contrast/concentration: Isovue 350.00 mg/ml; Total Contrast Delivered: 79.0 ml; Total Saline Delivered: 57.5 ml RENAL FUNCTION: Creatinine = 1.0 RADIATION DOSE: CT Rad equipment meets quality standard of care and radiation dose reduction techniq ues were employed. CTDIvol: 7.3 - 8.4 mGy. DLP: 800 mGy-cm.. LIMITATIONS: None. FINDINGS: LOWER CHEST: No significant findings. No nodules or infiltrates. LIVER: Normal size. No masses. No dilated ducts. SPLEEN: Normal size. No focal lesions. PANCREAS: There is new soft tissue mass of the pancreatic body measuring 5.3 x 2.1 x 2.8 cm (series 2 , image 30, series 602, image 47). No significant calcifications. No adjacent inflammation or peripa ncreatic fluid collections. Pancreatic duct not dilated. GALLBLADDER: No identified stones by CT criteria. No inflammatory changes to suggest cholecystitis. ADRENAL GLANDS: No significant masses or asymmetry. RIGHT KIDNEY AND URETER: No solid masses. No significant calcifications. No hydronephrosis or hyd roureter status post ileal conduit urinary diversion. LEFT KIDNEY AND URETER: No solid masses. No significant calcifications. Redemonstrated left-sided hydronephrosis status post ileal conduit urinary diversion. There is no significant contrast excret ion on delayed phase imaging, concerning for high-grade obstruction. AORTA AND VESSELS: No aneurysm. No dissection. Renal arteries, SMA, celiac without stenosis. RETROPERITONEUM: No retroperitoneal adenopathy, hemorrhage or masses. BOWEL AND PERITONEAL CAVITY: Postoperative findings of ileal conduit urinary diversion. No masses or inflammatory changes. No free fluid or peritoneal masses. APPENDIX: Normal. PELVIS: No mass. No free fluid. Status posthysterectomy. Normal bladder. ABDOMINAL WALL: There is an abdominal wall fluid collection about the inferior aspect of a urinary di version stoma measuring approximately 9.2 x 3.0 x 5.8 cm (series 2, image 69, series 602, image 34). BONES: No significant or acute findings. OTHER: No other significant finding. IMPRESSION: 1. There is an abdominal wall fluid collection about the inferior aspect of a urinary di version stoma measuring approximately 9.2 x 3.0 x 5.8 cm (series 2, image 69, series 602, image 34). Given recent parastomal hernia repair, this may reflect hematoma, seroma, or abscess. This is likel y amenable to percutaneous ultrasound-guided aspiration if desired. 2. Redemonstrated left-sided hydronephrosis status post ileal conduit urinary diversion. There is no significant contrast excretion on delayed phase imaging, concerning for high-grade obstruction. 3. There is new soft tissue mass of the pancreatic body measuring 5.3 x 2.1 x 2.8 cm (series 2, image 30, series 602, image 47). This finding is concerning for malignancy. Recommend multiphasic contra st-enhanced MRI to further evaluate. TECHNICAL DOCUMENTATION: JOB ID: [id number] Quality ID # [id number]: Final reports with documentation of one or more dose reduction techniques (e.g., Au tomated exposure control, adjustment of the mA and/or kV according to patient size, use of iterative reconstruction technique) 2010 [email or web address]- All Rights Reserved Reading location - IP/workstation name: [email or web address]
[2019-03-01 14:13] LABS: APPEARANCE,URINE TURBID; BILIRUBIN,URINE NEGATIVE (NEGATIVE); COLOR,URINE RED; GLUCOSE, URINE NEGATIVE (NEGATIVE); KETONES,URINE TRACE mg/dL (NEGATIVE); LEUKOCYTE ESTERASE,URINE SMALL (NEGATIVE); NITRITE,URINE NEGATIVE (NEGATIVE); PROTEIN,URINE 100 mg/dL (NEGATIVE); URINE SPECIFIC GRAVITY 1.023; UROBILINOGEN,URINE NEGATIVE mg/dL (<2.0)
[2019-03-01] MEDS ORDERED: PIPERACILLIN/TAZOBACTAM 3.375 GM VIAL IV ONE (15:53)
[2019-03-01] MEDS ORDERED: PIPERACILLIN/TAZOBACTAM 3.375 GM VIAL IV SCH ×2 (16:15→22:15)
[2019-03-01] MEDS ORDERED: ONDANSETRON HCL INJ/PF 4 MG/2 ML SDV IV ONE (20:36)
--- NOTE | 2019-03-01 21:09 | ER Document Report ---
Doctor's Note Notes: 03/01/19 21:09 Patient was evaluated upon transfer team arrival. She is resting comfortably. She denies any pain. Vital signs are stable and she is stable for transfer.
[2019-03-01 21:33] VITALS: BP 134/53
== END 2019-03-01 21:32 | disposition short-term general hospital (02) ==
LOC: ER 10:24
DX: K86.9 Disease of pancreas, unspecified (principal); R19.00 Intra-abdominal and pelvic swelling, mass and lump, unspecified site; R10.32 Left lower quadrant pain; R10.31 Right lower quadrant pain; R11.10 Vomiting, unspecified; R19.7 Diarrhea, unspecified; R50.9 Fever, unspecified; R10.815 Periumbilic abdominal tenderness; Z85.51 Personal history of malignant neoplasm of bladder; I10 Essential (primary) hypertension
CPT/HCPCS: 99285; 96361; 96375; 96365; 86900; 86901; 36415; 87086; 86850; 83690; 85025; 87088; 80053; 81001; 87186; 76770; 74177; J2405; J7030; J2543

== ENCOUNTER 2019-05-29 08:15 | Day surgery (SDC) | payer MEDICARE ==
[~2019-05-29 08:15] MED LIST: CHONDR SU A NA/HYALUR INTRAOC KIT (SURGICARE) ONE; DORZOLAMIDE HCL 2%/TIMOLOL MALEAT 0.5% OPH SOLN 10 ML OD PRN; EPINEPHRINE INJ/PF 1 MG/1 ML AMPULE ONE; KETOROLAC TROMETHAMINE 0.45% 4 DROP/0.4 ML DROPERETTE OD PRN; LIDOCAINE 1% INJ-PF (10 MG/ML) 30 ML SDV ONE; TOBRAMYCIN SULFATE/DEXAMETH OPH OINTMENT 3.5 GM ONE
[2019-05-29] MEDS: TETRACAINE HCL 0.5% OPH SOLN 4 ML OD PRN ×3 (08:57→09:31)
[2019-05-29] MEDS: BESIFLOXACIN HCL 0.6% OPH SUSP 5 ML BOTTLE OD PRN ×3 (08:57→09:50)
[2019-05-29] MEDS: TROPICAMIDE 1% OPH SOLN 15 ML OD PRN ×3 (08:57→09:20)
[2019-05-29] MEDS: CYCLOPENTOLATE 0.2%/PHENYLEPHRINE 1% OPH SOLN 2 ML OD PRN ×3 (08:57→09:20)
[2019-05-29] MEDS ORDERED: MIDAZOLAM 2 MG/2 ML INJ ONE ×2 (09:17→09:37)
[2019-05-29] MEDS ORDERED: FENTANYL CITRATE INJ/PF 100 MCG/2 ML AMPUL ONE (09:18)
== END 2019-05-29 10:30 | disposition home or self-care (01) ==
LOC: SC 08:15
PROVIDERS: ATTEND Ophthalmology
DX: H25.11 Age-related nuclear cataract, right eye (principal); I10 Essential (primary) hypertension; D64.9 Anemia, unspecified; Z79.82 Long term (current) use of aspirin; Z79.899 Other long term (current) drug therapy; Z85.51 Personal history of malignant neoplasm of bladder
CPT/HCPCS: 00142; 66984; V2632; J2250; J3490 ×3; A9270 ×2; J0171; J3010; 142

== ENCOUNTER 2019-06-12 08:19 | Day surgery (SDC) | payer MEDICARE ==
[~2019-06-12 08:19] MED LIST changes: -CHONDR SU A NA/HYALUR INTRAOC KIT (SURGICARE) ONE; -DORZOLAMIDE HCL 2%/TIMOLOL MALEAT 0.5% OPH SOLN 10 ML OD PRN; -EPINEPHRINE INJ/PF 1 MG/1 ML AMPULE ONE; -KETOROLAC TROMETHAMINE 0.45% 4 DROP/0.4 ML DROPERETTE OD PRN; +KETOROLAC TROMETHAMINE 0.45% 4 DROP/0.4 ML DROPERETTE OS PRN; -LIDOCAINE 1% INJ-PF (10 MG/ML) 30 ML SDV ONE; -TOBRAMYCIN SULFATE/DEXAMETH OPH OINTMENT 3.5 GM ONE
[2019-06-12] MEDS: TROPICAMIDE 1% OPH SOLN 15 ML OS PRN ×3 (08:45→09:10)
[2019-06-12] MEDS: CYCLOPENTOLATE 0.2%/PHENYLEPHRINE 1% OPH SOLN 2 ML OS PRN ×3 (08:45→09:10)
[2019-06-12] MEDS: BESIFLOXACIN HCL 0.6% OPH SUSP 5 ML BOTTLE OS PRN ×4 (08:45→09:41)
[2019-06-12] MEDS: TETRACAINE HCL 0.5% OPH SOLN 4 ML OS PRN ×3 (08:45→09:19)
[2019-06-12] MEDS ORDERED: FENTANYL CITRATE INJ/PF 100 MCG/2 ML AMPUL ONE (09:07)
[2019-06-12] MEDS ORDERED: MIDAZOLAM 2 MG/2 ML INJ ONE ×2 (09:07→09:19)
[2019-06-12] MEDS: CHONDR SU A NA/HYALUR INTRAOC KIT (SURGICARE) ONE ×2 (09:32)
[2019-06-12] MEDS: LIDOCAINE 1% INJ-PF (10 MG/ML) 30 ML SDV ONE ×2 (09:32)
[2019-06-12] MEDS: EPINEPHRINE INJ/PF 1 MG/1 ML AMPULE ONE ×2 (09:32)
[2019-06-12] MEDS: DORZOLAMIDE HCL 2%/TIMOLOL MALEAT 0.5% OPH SOLN 10 ML OS PRN ×2 (09:41)
[2019-06-12] MEDS: TOBRAMYCIN SULFATE/DEXAMETH OPH OINTMENT 3.5 GM ONE ×2 (09:41)
== END 2019-06-12 10:13 | disposition home or self-care (01) ==
LOC: SC 08:19
PROVIDERS: ATTEND Ophthalmology
DX: H25.12 Age-related nuclear cataract, left eye (principal); Z98.41 Cataract extraction status, right eye; I10 Essential (primary) hypertension; K21.9 Gastro-esophageal reflux disease without esophagitis; Z88.2 Allergy status to sulfonamides; Z79.82 Long term (current) use of aspirin; D64.9 Anemia, unspecified
CPT/HCPCS: 00142; 66984; V2632; J2250; J3490 ×3; A9270 ×2; J0171; J3010; 142

== ENCOUNTER → 2020-01-08 | Outpatient (CLI) | payer MEDICARE ==
--- NOTE | 2020-01-08 14:25 | RADIOLOGY REPORT (SQ) ---
EXAM DESCRIPTION: CT CHEST WITH; CT ABD/PELVIS WITH IV ONLY IMAGES COMPLETED DATE/TIME: 01/08/2020 1:50 pm REASON FOR STUDY: C67.9 MALIGNANT NEOPLASM OF BLADDER, UNSPECIFIED C67.9 MALIGNANT NEOPLASM OF BLAD JOHN, UNSPECIFIED COMPARISON: ABDOMINOPELVIC CT 2018. CONTRAST TYPE AND DOSE: contrast/concentration: Isovue 350.00 mmol/ml; Total Contrast Delivered: 85. 0 ml; Total Saline Delivered: 68.9 ml RENAL FUNCTION: GFR > 60. TECHNIQUE: CT scan of the chest performed using helical scanning technique with dynamic intravenous contrast injection. Images reviewed with lung, soft tissue and bone windows. Reconstructed coronal a nd sagittal MPR images reviewed. All images stored on PACS. CT scan of the abdomen and pelvis performed with intravenous and with oral contrastusing helical scan rajni technique with dynamic intravenous contrast injection. Images reviewed with lung, soft tissue a nd bone windows. Reconstructed coronal and sagittal MPR images reviewed. Delayed images for evaluat ion of the urinary system also acquired and evaluated. All images stored on PACS. All CT scanners at this facility use dose modulation, iterative reconstruction, and/or weight based d osing when appropriate to reduce radiation dose to as low as reasonably achievable (ALARA). [facility]: Dose Right [facility]: CareDose [facility]: Dose Right [facility]: Teradose 4D [facility]: [employer] RADIATION DOSE: CT Rad equipment meets quality standard of care and radiation dose reduction techniq ues were employed. CTDIvol: 6.4 - 10.0 mGy. DLP: 1234 mGy-cm. . LIMITATIONS: None. FINDINGS: CHEST: LUNGS AND PLEURA: No opacities, nodules, masses. No pneumothorax. No effusions. HILAR AND MEDIASTINAL STRUCTURES: No identified masses or abnormal nodes. HEART AND VASCULAR STRUCTURES: No aneurysm or dissection. No central pulmonary emboli. No pericardi al effusion. HARDWARE: None. THYROID AND OTHER SOFT TISSUES: Heterogeneous nodular enlarged left thyroid lobe. No significant mas s effect on the airway. Shotty axillary nodes. No chest wall mass. BONES: No significant finding. OTHER: No other significant finding. ABDOMEN AND PELVIS: LIVER: Normal size. No masses. No dilated ducts. SPLEEN: Normal size. No focal lesions. PANCREAS: No masses. No significant calcifications. No adjacent inflammation or peripancreatic fluid collections. Pancreatic duct not dilated. GALLBLADDER: No identified stones by CT criteria. No inflammatory changes to suggest cholecystitis. ADRENAL GLANDS: No significant masses or asymmetry. RIGHT KIDNEY AND URETER: No fixed obstruction. Mildly ectatic ureter, relatively chronic change sugg ested post cystectomy. LEFT KIDNEY AND URETER: Marked hydronephrosis with chronic parenchymal thinning and atrophy. Dilated left ureter, chronic. On delayed imaging, no significant excretion into the dilated collecting syst em. This looks chronic as well. AORTA AND VESSELS: No aneurysm. No dissection. Renal arteries, SMA, celiac without stenosis. No veno us clot detected. RETROPERITONEUM: No retroperitoneal adenopathy, hemorrhage or masses. BOWEL AND PERITONEAL CAVITY: No evidence of mechanical bowel obstruction or ascites or abnormal gas o r bulky adenopathy or implants. APPENDIX: Normal. ABDOMINAL WALL: Small ventral fat containing areas of hernia. Right lower quadrant urostomy, urinary diversion post cystectomy. PELVIS: Status post cystectomy. No pelvic mass or adenopathy detected. BONES: No significant or acute findings. OTHER: No other significant finding. IMPRESSION: 1. No acute or suspicious thoracic abnormality. Heterogeneous thyroid noted. 2. Chronic post treatment changes in the abdomen and pelvis status post cystectomy and urinary divers ion with chronic left renal obstructive changes and atrophy. No suggestion of developing metastatic disease. TECHNICAL DOCUMENTATION: JOB ID: [id number] Quality ID # [id number]: Final reports with documentation of one or more dose reduction techniques (e.g., Au tomated exposure control, adjustment of the mA and/or kV according to patient size, use of iterative reconstruction technique) 2010 [employer]- All Rights Reserved Reading location - IP/workstation name: [email or web address]
== END ==
LOC: RAD 13:05
PROVIDERS: ATTEND Physician Assistant
DX: C67.9 Malignant neoplasm of bladder, unspecified (principal)
CPT/HCPCS: 71260; 74177; 82565